=== PATIENT | male | born 1980 | race Caucasian/White ===

== ENCOUNTER 2018-12-16 10:52 | Emergency (ER) | payer SELFPAY ==
[2018-12-16] MEDS ORDERED: Acetaminophen/HYDROcodone 325-5 MG Tab PO ONE (11:10)
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
--- NOTE | 2018-12-18 10:24 | CR ---
Chest: Two views of the chest were obtained. Comparison: No previous chest x-ray. Heart size and mediastinum are normal. Lungs are clear. No discrete bony abnormality is seen. Surgical clips are seen within the upper right abdomen from prior cholecystectomy. Impression: 1. Nothing acute is appreciated on two-view chest x-ray. Diagnostic code #2
--- NOTE | 2018-12-18 10:28 | CR ---
Right clavicle: Two views of the right clavicle were obtained. Comparison: No previous clavicle exam. No discrete fracture or other bony abnormality is seen. Impression: 1. No bony abnormality is identified on right clavicle exam. Diagnostic code #1
== END 2018-12-16 13:22 | disposition home or self-care (01) ==
LOC: JD.ED 10:52
DX: S02.5XXA Fracture of tooth (traumatic), initial encounter for closed fracture (principal); S43.211A Anterior subluxation of right sternoclavicular joint, initial encounter; S00.81XA Abrasion of other part of head, initial encounter; S50.312A Abrasion of left elbow, initial encounter; S60.812A Abrasion of left wrist, initial encounter; S80.212A Abrasion, left knee, initial encounter; Z90.49 Acquired absence of other specified parts of digestive tract; Z98.890 Other specified postprocedural states; V11.4XXA Pedal cycle driver injured in collision with other pedal cycle in traffic accident, initial encounter
CPT/HCPCS: 71046; 73000; 99284; A9270; 99283